=== PATIENT | female | born 1950 | race Caucasian/White ===

== ENCOUNTER 2019-01-03 10:13 | Inpatient (IN) | payer OTHER ==
[~2019-01-03] VITALS: Ht 157.5 cm; Wt 102.6 kg
--- NOTE | 2019-01-03 12:05 | NUR ---
Respiratory note: TOOK PT OFF BIPAP AND PLACED ON 2L N/C. SPO2 96%, RR 18, HR 100. EXPIRATORY WHEEZES HEARD T/O.
[2019-01-03] MEDS ORDERED: methylPREDNISolone SOD SUCC 125 MG/2 ML VL ONE (12:21)
[2019-01-03] MEDS ORDERED: IPRATROPIUM BROM 0.5 MG/2.5ML INH SOL HHN ONE (12:30)
[2019-01-03] MEDS ORDERED: ALBUTEROL SULF 2.5 MG/0.5ML(0.5%) NEB SOLN HHN ONE (12:30)
[2019-01-03] MEDS: cefTRIAXone 1GM/50ML D5W 50 ML IV ONE ×2 (12:33→13:37)
--- NOTE | 2019-01-03 12:35 | NUR ---
Respiratory note: MED NEB TX GIVEN.
[2019-01-03] MEDS ORDERED: methylPREDNISolone SOD SUCC 125 MG/2 ML VL IV ONE (12:45)
[2019-01-03] MEDS ORDERED: LORazepam 2MG/ML-1ML VIAL IV ONE (13:30)
[2019-01-03 13:58] VITALS: BP 141/78
[2019-01-03 13:58] LABS: Basophils # (auto) 0 uL; Basophils % (auto) 0.1 % (0.0-2.0); Eosinophils # (auto) 0 uL; Hemoglobin 14.5 g/dL (12.2-16.2); Lymphocytes # (auto) 0.9 uL; Lymphocytes % (auto) 6.1 % (10.0-50.0); Mean Corpuscular Hemoglobin 28.5 pg (28.0-32.0); Mean Corpuscular Volume 86.4 fL (80.0-100.0); Monocytes # (auto) 0.6 uL; Monocytes % (auto) 4.6 % (0.0-12.0); Neutrophils # (auto) 12.6 uL; Neutrophils % (auto) 89.2 % (37.0-80.0); Nucleated Red Blood Cells % 0.1 %; Platelet Count (auto) 308 10^3/uL (140-450); Red Cell Distribution Width 17.7 % (11.8-14.3); White Blood Cell 14.1 10^3/uL (4.4-10.8)
[2019-01-03] MEDS ORDERED: ONDANSETRON HCL 4 MG/2 ML VIAL IV PRN (14:00)
[2019-01-03] MEDS ORDERED: HYDROcodone-ACET 5/325MG TAB PO PRN (14:00)
[2019-01-03] MEDS ORDERED: ACETAMINOPHEN 500 MG TAB PO PRN (14:00)
[2019-01-03] MEDS ORDERED: MORPHINE SULF INJ 2 MG/ML SYRINGE 1ML IV PRN ×2 (14:00)
[2019-01-03] MEDS ORDERED: NITROGLYCERIN 0.4 MG SL TAB SL PRN (14:00)
[2019-01-03] MEDS ORDERED: ALBUTEROL SULF 2.5 MG/0.5ML(0.5%) NEB SOLN NEB ONE (14:15)
[2019-01-03 14:16] LABS: Albumin 3.8 g/dL (3.4-5.0); Anion Gap 6 (5-15); Blood Urea Nitrogen 20 mg/dL (7-18); Calcium 9.4 mg/dL (8.5-10.1); Carbon Dioxide 25 mmol/L (21-32); Chloride 103 mmol/L (98-107); Glucose 118 mg/dL (74-106); Potassium 4.6 mmol/L (3.5-5.1); Sodium 134 mmol/L (136-145)
[2019-01-03] MEDS: IPRATROPIUM BROM 0.5 MG/2.5ML INH SOL NEB SCH ×2 (14:18→19:02)
[2019-01-03] MEDS: ALBUTEROL SULF 2.5 MG/0.5ML(0.5%) NEB SOLN NEB SCH ×2 (14:18→19:02)
[2019-01-03 14:22] LABS: Alanine Aminotransferase 52 U/L (13-56); Alkaline Phosphatase 93 U/L (45-117); Aspartate Aminotransferase 75 U/L (15-37); BUN/Creatinine Ratio 24.1; Bilirubin, Total 0.3 mg/dL (0.2-1.0); GFR African American 88 mL/min; GFR Non-African American 73 mL/min; Total Protein 8.6 g/dL (6.4-8.2)
[2019-01-03] MEDS: AZITHROMYCIN 500MG/ 250ML 250 ML IV SCH (14:45)
[2019-01-03 15:45] VITALS: BP 138/83
[2019-01-03 15:55] VITALS: BP 141/80
[2019-01-03] MEDS: Glucerna Carbsteady SHAKE Vanilla 8oz PO SCH (18:00)
--- NOTE | 2019-01-03 18:00 | NUR ---
PT ADMITTED TO FLOOR FROM E.R VIA BED AND STAFF. PT RESTLESS AND BREATHING DEEPLY. PT ON BIPAP. VITALS: T 97.7, HR 98, 02 94, BP, 146/71 RR 30. PT ORIENTED TO CALL LIGHT AN VISITING HOURS. PT VOIDED APPROX 300 MLS CLEAR YELLOW URINE. WILL CONTINUE TO MONITOR.
[2019-01-03 18:38] VITALS: BP 146/71
[2019-01-03] MEDS: BUDESONIDE (INHALATION) 0.5 MG/2 ML NEB NEB SCH (19:02)
--- NOTE | 2019-01-03 19:02 | NUR ---
Respiratory note: RECEIVED PT ON RESPIRONICS BIPAP. UPON ENTERING PT ON BIPAP. SHEELA OVERTON AT BEDSIDE MADE AWARE BIPAP WAS NOT CONNECTED TO RED OUTLET AND O2 SOURCE AND ALSO TOLD THAT RESPIRATORY NEEDS TO AWARE TO MAKE SURE BIPAP IS CONNECTED PROPERLY AND PLACE CONTINUOUS POX AT BEDSIDE. RN COMMUNICATED ER TRANSPORTED AND PLACED PT BACK ON BIPAP. I CONNECTED BIPAP TO RED OUTLET AND O2 SOURCE PROPERLY. PLACED PT ON CONTINUOS POX. PLACED ON RIGHT INDEX FINGER. BS ARE FINE COURSE WHEEZES T/O. MED NEB TX GIVEN INLINE WITHOUT ADVERSE REACTION NOTED. RT NAME AND PAGER ASSIGNMENT WRITTEN ON PTS ROOM BOARD WILL CONTINUE TO MONITOR Q2H. Addendum: 01/03/19 at 2119 by Lisa Willett RT NO ABNORMAL SKIN INTEGRITY NOTED. PT ON SIZE M MASK NO REDNESS OR SKIN BREAKDOWN NOTED. LIQUICEL ON BRIDGE OF NOSE.
--- NOTE | 2019-01-03 19:35 | NUR ---
Opening Shift Note Assumed care of patient, awake and alert. Family at bedside. No S/S of distress/SOB or pain. Patient currently on BiPAP. Bed locked in lowest position, side rails upx2, call light within reach. Instructed on POC and to call for assist PRN, will continue to monitor for changes Q1hr and PRN.
--- NOTE | 2019-01-03 20:12 | NUR ---
Respiratory note: PAGED TO BEDSIDE, UPON ENTERING ROOM PT NOT ON BIPAP. RT NOT NOTIFIED PT CAME OFF BIPAP. PT ASKING TO BE PLACED BACK ON BIPAP. PT COMMUNICATED SHE CAME OFF TO EAT BUT NOW FEELS A LITTLE SHORT OF BREATH. PLACED BACK ON BIPAP ON PREVIOUS SETTINGS. NO CHANGES MADE. WILL CONTINUE TO MONITOR.
[2019-01-03] MEDS: TEMAZEPAM 15 MG CAP PO PRN (21:20)
[2019-01-03] MEDS: methylPREDNISolone SOD SUCC 40 MG/ML VL IV SCH (21:20)
[2019-01-03 22:00] VITALS: BP 132/86
--- NOTE | 2019-01-03 22:18 | NUR ---
Respiratory note: AT BEDSIDE FOR ROUTINE BIPAP CHECK, NO BIPAP CHANGES MADE. PT COMFORTABLY SLEEPING AT THIS TIME. WILL CONTINUE TO MONITOR.
--- NOTE | 2019-01-04 02:33 | NUR ---
Respiratory note: AT BEDSIDE FOR ROUTINE BIPAP CHECK. PT COMFORTABLY SLEEPING. NO CHANGES MADE.
--- NOTE | 2019-01-04 04:40 | NUR ---
Respiratory note: WALKING DOWN HALLWAY BIPAP ALARM IS AUDIBLE. PT SITTING AT EDGE OF BED TRIPODING, PT STATES SHE IS SOB. BS ARE COURSE WHEEZES T/O. WILL NOTIFY ELVI BAILEY TO OBTAIN ORDER FOR A CONTINUOUS TREATMENT.
[2019-01-04] MEDS ORDERED: ALBUTEROL SULF 2.5 MG/0.5ML(0.5%) NEB SOLN NEB ONE (04:45)
[2019-01-04] MEDS ORDERED: IPRATROPIUM BROM 0.5 MG/2.5ML INH SOL NEB ONE (04:45)
[2019-01-04] MEDS ORDERED: ALBUTEROL SULF 2.5 MG/0.5ML(0.5%) NEB SOLN ONE (04:47)
[2019-01-04] MEDS ORDERED: IPRATROPIUM BROM 0.5 MG/2.5ML INH SOL ONE (04:47)
[2019-01-04 05:00] VITALS: BP 130/77
[2019-01-04 05:21] LABS: Urine Bacteria FEW /hpf (None Seen); Urine Blood Negative /uL (Negative); Urine Hyaline Cast FEW /lpf (0 - 2); Urine Specific Gravity 1.016 (1.001-1.035); Urine WBC 2 /hpf (0 - 5)
[2019-01-04 05:34] LABS: Basophils # (auto) 0 uL; Basophils % (auto) 0.1 % (0.0-2.0); Eosinophils # (auto) 0 uL; Hematocrit 42.3 % (36.0-46.0); Hemoglobin 14.3 g/dL (12.2-16.2); Lymphocytes # (auto) 0.8 uL; Lymphocytes % (auto) 7.8 % (10.0-50.0); Mean Corpuscular Hemoglobin 29.3 pg (28.0-32.0); Mean Corpuscular Hgb Conc. 33.9 g/dL (32.0-36.0); Mean Corpuscular Volume 86.3 fL (80.0-100.0); Monocytes # (auto) 0.5 uL; Monocytes % (auto) 4.5 % (0.0-12.0); Neutrophils # (auto) 9.3 uL; Neutrophils % (auto) 87.6 % (37.0-80.0); Platelet Count (auto) 327 10^3/uL (140-450); Red Cell Distribution Width 17.7 % (11.8-14.3); White Blood Cell 10.7 10^3/uL (4.4-10.8)
[2019-01-04 05:57] LABS: Calcium 9.1 mg/dL (8.5-10.1); Potassium 4.9 mmol/L (3.5-5.1)
[2019-01-04] MEDS: ALBUTEROL SULF 2.5 MG/0.5ML(0.5%) NEB SOLN NEB SCH ×5 (06:24→22:49)
[2019-01-04] MEDS: IPRATROPIUM BROM 0.5 MG/2.5ML INH SOL NEB SCH ×5 (06:24→22:49)
--- NOTE | 2019-01-04 07:42 | NUR ---
PATIENT RESTING IN BED, NO DISTRESS NOTED. PT REPORTS 4/10 PAIN IN ABDOMEN. PAIN MEDICATION OFFERED, PT REPORTS SHE DOES NOT NEED IT AT THIS TIME. PT REPORTS SHE HAD A BM YESTERDAY. 2 SMALL INCISIONS ON RIGHT ABDOMEN HAVE MINIMAL SEROSANGUINEOUS DRAINAGE ON GAUZE COVERED WITH TEGADERM. LARGER INCISION ON LEFT HAS WHITE BANDAGE COVERING IT. ABDOMINAL BINDER IN PLACE. 20 MLS SANGUINOUS DRAINAGE EMPTIED FROM ADELINE DRAIN. PT ENCOURAGED TO USE CALL LIGHT PRN, WILL CONTINUE TO MONITOR. Addendum: 01/04/19 at 0754 by DEVORAH RAMAN RN WRONG PATIENT
--- NOTE | 2019-01-04 07:54 | NUR ---
PT RESTING IN BED, NO DISTRESS NOTED. PT ON BIPAP MACHINE. 02 SAT 94. PT REPORTS SHE HAS NO PAIN OR ANXIETY AT THIS TIME. CALL LIGHT IN REACH, ENCOURAGED TO CALL PRN. BED IN LOWEST LOCKED POSITION, SIDE RAILS UP X 2, WILL CONTINUE TO MONITOR.
--- NOTE | 2019-01-04 08:10 | NUR ---
Respiratory note: WALKED BY ROOM ALARM FOR BEDSIDE POX GOING OFF. PT WAS OFF BIPAP AND ON 4L N/C. PT STATED THE EMPLOYMENT EVALUATOR/CASE MANAGER TOOK HER OFF BIPAP TO EAT BREAKFAST. HR 87, RR 20, SPO2 96% ON 4L N/C.
--- NOTE | 2019-01-04 08:22 | NUR ---
RT CAME, PT NOW ON 4L NC AND 02 SAT 97. PT REPORTS NO ANXIETY OR DISTRESS AT THIS TIME WILL CONTINUE TO MONITOR.
[2019-01-04 09:00] VITALS: BP 127/73
[2019-01-04] MEDS: Glucerna Carbsteady SHAKE Vanilla 8oz PO SCH ×3 (09:25→14:16)
[2019-01-04] MEDS: methylPREDNISolone SOD SUCC 40 MG/ML VL IV SCH ×2 (09:26→21:43)
[2019-01-04] MEDS: PANTOPRAZOLE 40 MG/10 ML VIAL IV SCH (10:09)
[2019-01-04] MEDS: cefTRIAXone 1GM/50ML D5W 50 ML IV SCH (10:09)
[2019-01-04] MEDS: BUDESONIDE (INHALATION) 0.5 MG/2 ML NEB NEB SCH ×2 (10:20→18:25)
[2019-01-04] MEDS: AZITHROMYCIN 500MG/ 250ML 250 ML IV SCH (10:42)
--- NOTE | 2019-01-04 10:51 | NUR ---
SPOKE WITH DR. BEACH, INFORMED MD PT IS HIGH RISK FOR DVT, MD REPORTS HE WILL PUT HER ON LOVENOX. ALSO INFORMED PT WISHES TO HAVE NO CPR BUT IS COMFORTABLE WITH INTUBATION. MD AWARE. WILL CONTINUE TO MONITOR.
--- NOTE | 2019-01-04 11:15 | NUR ---
RADIOLOGY CALLED. NEW IV NEEDED. NEW IV PLACED LAC USING STERILE TECHNIQUE. PT TOLERATED PROCEDURE WELL. PT INSTRUCTED NOT TO EAT LUNCH BEFORE CT CHEST ANGIO WITH CONTRAST, PT AGREED, WILL CONTINUE TO MONITOR.
--- NOTE | 2019-01-04 12:52 | NUR ---
ARIA SOLANO REQUESTS TO CANCEL SOCIAL SERVICE ORDER FOR [place] OF GROUP/ INSURANCE. ARIA REPORTS DATABASE CONSULTANT DOESN'T DO THIS, THE PATIENT IS TO CHANGE THE GROUP/ INSURANCE. ORDER CANCELLED.
[2019-01-04] MEDS ORDERED: IOHEXOL 350 MG/ML 100ML IJ ONE (12:55)
[2019-01-04 13:00] VITALS: BP 149/85
--- NOTE | 2019-01-04 14:35 | NUR ---
YAMILETH COKER FROM [facility] CALLED, REQUESTED MD NOTES. MD NOTES FAXED. WILL CONTINUE TO MONITOR.
--- NOTE | 2019-01-04 15:00 | NUR ---
ASKED WASH HOUSE SUPERVISOR TO CALL IN PULMONARY CONSULT.
--- NOTE | 2019-01-04 15:50 | NUR ---
PT REPORTS SHE IS GETTING HUNGRY, PT REQUESTING TO KNOW WHEN RADIOLOGY WILL DO CT WITH CONTRAST. CALLED RADIOLOGY, RADIOLOGY REPORTS THEY WILL COME GET PATIENT NOW. PT NOTIFIED, WILL CONTINUE TO MONITOR.
[2019-01-04 17:00] VITALS: BP 144/76
--- NOTE | 2019-01-04 19:30 | NUR ---
Opening Shift Note Received report from Meron COKER. Assumed care of patient, awake and alert, sitting on the chair, daughter at bedside. No S/S of distress/SOB or pain. Instructed on POC and to call for assist PRN, will continue to monitor for changes Q1hr and PRN.
[2019-01-04 20:00] VITALS: BP 150/80
--- NOTE | 2019-01-04 21:45 | NUR ---
RT NOTE: PT SEEN BY RT @ THIS TIME TO CHECK IF PT NEEDS BIPAP. PT STATED BIPAP NOT NEEDED ALTHOUGH FEELING SLIGHT SOB. RN @ BEDSIDE GIVING MEDS AND AWARE. WILL CONT TO MONITOR PT. PT AWARE TO PAGE FOR RT IF BIPAP IS NEEDED. SP02 98% ON 3L NC, HR 84 ON CONT PULSE OX MONITOR.
[2019-01-04 22:00] VITALS: BP 150/80
--- NOTE | 2019-01-04 22:49 | NUR ---
RT NOTE: RT PAGED TO ROOM. PT @ BEDSIDE TRIPODING, REQUESTING BREATHING TX. UNSCHEDULED TX GIVEN @ THIS TIME. SPO2 96% ON 3L NC, RR 26. EXPIRATORY WHEEZES AUSCULTATED T/O. NO ADVERSE REACTIONS NOTED POST TX. PT JODI TX WELL. STATED SHE FELT BETTER. WILL CONT TO MONITOR.
[2019-01-04] MEDS: TEMAZEPAM 15 MG CAP PO PRN (23:01)
--- NOTE | 2019-01-04 23:58 | NUR ---
Patient is having continuous non productive cough Paged hospitalist to request cough medication. Awaiting call back of hospitalist.
--- NOTE | 2019-01-05 01:04 | NUR ---
Call from Hospitalist Hospitalist Dominick called back and ordered Robitussin DM 10ml Q6H PRN, carried out and followed through.
[2019-01-05] MEDS: guaiFENesin-DM 100/10mg/5ml SYR PO PRN ×3 (03:43→21:46)
[2019-01-05 05:00] VITALS: BP 120/69
[2019-01-05] MEDS: methylPREDNISolone SOD SUCC 40 MG/ML VL IV SCH ×3 (06:10→21:47)
[2019-01-05] MEDS: IPRATROPIUM BROM 0.5 MG/2.5ML INH SOL NEB SCH ×4 (06:52→18:04)
[2019-01-05] MEDS: ALBUTEROL SULF 2.5 MG/0.5ML(0.5%) NEB SOLN NEB SCH ×4 (06:52→18:04)
[2019-01-05] MEDS: BUDESONIDE (INHALATION) 0.5 MG/2 ML NEB NEB SCH ×2 (06:53→18:04)
--- NOTE | 2019-01-05 07:15 | NUR ---
Open Shift Note Received report on patient, awake and sitting up in chair. Patient has cough present, states it is difficult to take deep breathes for assessment. Patient aware of pending sputum sample. Wheezes present in all lobes. Discussed POC with patient. Bed in lowest locked position, side rails up x2, and call light within reach. Will continue to monitor.
--- NOTE | 2019-01-05 07:30 | NUR ---
Patient sitting on the chair, in mild distress with SOB, no pain. Endorsed care to Kanika COKER.
[2019-01-05 08:38] VITALS: BP 126/75
[2019-01-05] MEDS: PANTOPRAZOLE 40 MG/10 ML VIAL IV SCH (10:04)
[2019-01-05] MEDS: Glucerna Carbsteady SHAKE Vanilla 8oz PO SCH ×3 (10:04→18:33)
[2019-01-05] MEDS: cefTRIAXone 1GM/50ML D5W 50 ML IV SCH (10:05)
[2019-01-05 12:50] VITALS: BP 133/79
[2019-01-05] MEDS: AZITHROMYCIN 500MG/ 250ML 250 ML IV SCH (14:00)
[2019-01-05 16:53] LABS: Cholesterol 278 mg/dL (< 200); Triglycerides 123 mg/dL (< 150)
[2019-01-05 16:56] LABS: HDL Cholesterol 103 mg/dL (40-59); LDL Cholesterol 147 mg/dL (< 100)
[2019-01-05 17:00] VITALS: BP 132/78
--- NOTE | 2019-01-05 19:25 | NUR ---
End of Shift Endorsed care to NOC nurse. Patient shows no signs of distress at this time. Bed in lowest locked position, side rails up x2, and call light within reach.
--- NOTE | 2019-01-05 19:26 | NUR ---
RECEIVED PATIENT FROM DAY SHIFT RN. PATIENT SITTING AT THE SIDE OF THE BED. NO S/S OF DISTRESS NOTED. DENIED PAIN FOR NOW. POC INSTRUCTED AND ENCOURAGED PATIENT TO CALL FOR DIFFUSION OPERATOR IF NEEDED. BED IN LOWEST POSITION WITH SIDE RAILS UP X 2. CALL GRANT WITHIN REACH. CONTINUE TO MONITOR FOR CHANGES Q1H AND PRN.
[2019-01-05] MEDS: TEMAZEPAM 15 MG CAP PO PRN (21:46)
[2019-01-05] MEDS: DOCUSATE SOD 100 MG CAP PO SCH (21:47)
--- NOTE | 2019-01-05 21:52 | NUR ---
PATIENT COUGHING AND BREATHING WITH WHEEZING. PRN COUGH MEDIATION GIVEN ORDERED. CONTINUE TO MONITOR.
[2019-01-05 22:17] VITALS: BP 139/71
--- NOTE | 2019-01-06 01:01 | NUR ---
PATIENT SLEEPING. NO S/S OF DISTRESS NOTED. BED IN LOWEST POSITION. ALARM ON. CALL GRANT WITHIN REACH. CONTINUE CARE.
--- NOTE | 2019-01-06 04:00 | NUR ---
PATIENT WALKED TO BATHROOM AND BACK TO BED. NO S/S OF DISTRESS NOTED. CONTINUE CARE.
[2019-01-06 04:26] VITALS: BP 130/69
[2019-01-06] MEDS: guaiFENesin-DM 100/10mg/5ml SYR PO PRN ×3 (04:29→21:29)
[2019-01-06] MEDS: methylPREDNISolone SOD SUCC 40 MG/ML VL IV SCH ×3 (05:52→21:30)
[2019-01-06] MEDS: ALBUTEROL SULF 2.5 MG/0.5ML(0.5%) NEB SOLN NEB SCH ×5 (06:11→22:04)
[2019-01-06] MEDS: IPRATROPIUM BROM 0.5 MG/2.5ML INH SOL NEB SCH ×5 (06:11→22:04)
--- NOTE | 2019-01-06 07:20 | NUR ---
Open Shift Note Received report on patient, awake and sitting on side of bed. Patient states they were able to get much more sleep last night, but still has SOB upon exertion. Patient shows no signs of distress at this time. Bed in lowest locked position, side rails up x2, and call light within reach. Will continue to monitor.
[2019-01-06 09:00] VITALS: BP 143/71
[2019-01-06] MEDS: Glucerna Carbsteady SHAKE Vanilla 8oz PO SCH ×3 (09:23→19:13)
[2019-01-06] MEDS: cefTRIAXone 1GM/50ML D5W 50 ML IV SCH (09:23)
[2019-01-06] MEDS ORDERED: PSYLLIUM PO PRN (10:00)
[2019-01-06] MEDS ORDERED: PSYLLIUM GT SCH (10:00)
[2019-01-06] MEDS: BUDESONIDE (INHALATION) 0.5 MG/2 ML NEB NEB SCH ×2 (10:13→18:37)
[2019-01-06] MEDS: PANTOPRAZOLE 40 MG/10 ML VIAL IV SCH (10:54)
[2019-01-06] MEDS: DOCUSATE SOD 100 MG CAP PO SCH ×2 (10:54→21:29)
[2019-01-06] MEDS: AZITHROMYCIN 500MG/ 250ML 250 ML IV SCH (10:54)
[2019-01-06 13:00] VITALS: BP 135/60
--- NOTE | 2019-01-06 15:30 | NUR ---
Dr Flannery at Bedside Dr Flannery at patient bedside.
[2019-01-06] MEDS ORDERED: ALBUTEROL SULF 2.5 MG/0.5ML(0.5%) NEB SOLN NEB PRN (16:00)
[2019-01-06 16:14] VITALS: BP 135/60
[2019-01-06 17:00] VITALS: BP 156/109
[2019-01-06] MEDS ORDERED: ACETYLCYSTEINE 10 %(100MG/ML) SOL 4ML NEB SCH (18:00)
[2019-01-06] MEDS: ACETYLCYSTEINE 10 %(100MG/ML) SOL 4ML NEB SCH (18:38)
--- NOTE | 2019-01-06 19:25 | NUR ---
RECEIVED PATIENT FROM DAY SHIFT RN. PATIENT SITTING AT THE SIDE OF THE BED. NO S/S OF DISTRESS NOTED. DENIED PAIN FOR NOW. POC INSTRUCTED AND ENCOURAGED PATIENT TO CALL FOR MOSAIC TILER IF NEEDED. BED IN LOWEST POSITION WITH SIDE RAILS UP X 2. CALL GRANT WITHIN REACH. CONTINUE TO MONITOR FOR CHANGES Q1H AND PRN.
--- NOTE | 2019-01-06 19:46 | NUR ---
PATIENT WALKED ON HALLWAY WITH PORTABLE OXYGEN, GAIT STEADY. PATIENT WALKED TO THE END OF THE HALLWAY AND BACK TO ROOM, SOB NOTED, O2 SAT DOWN TO 87%. PATIENT BACK TO ROOM AND SAT ON THE SIDE OF THE BED FOR A WHILE, GETTING BETTER, PATIENT WILL TRY LATER AGAIN FOR WALK. CONTINUE TO MONITOR.
[2019-01-06 22:00] VITALS: BP 144/76
[2019-01-06] MEDS: TEMAZEPAM 15 MG CAP PO PRN (22:28)
--- NOTE | 2019-01-06 22:28 | NUR ---
PATIENT WALKED TO BATHROOM WITH STEADY GAIT. NO S/S OF DISTRESS AND SOB NOTED. CONTINUE TO MONITOR.
--- NOTE | 2019-01-07 00:41 | NUR ---
PATIENT SLEEPING. NO S/S OF DISTRESS NOTED. BED IN LOWEST POSITION. ALARM ON. CALL GRANT WITHIN REACH. CONTINUE CARE.
[2019-01-07] MEDS: IPRATROPIUM BROM 0.5 MG/2.5ML INH SOL NEB SCH ×6 (02:00→22:01)
[2019-01-07] MEDS: ALBUTEROL SULF 2.5 MG/0.5ML(0.5%) NEB SOLN NEB SCH ×6 (02:00→22:01)
--- NOTE | 2019-01-07 02:11 | NUR ---
RT AT BEDSIDE FOR SCHEDULED BREATHING TREATMENT. CONTINUE CARE.
[2019-01-07 05:00] VITALS: BP 135/70
[2019-01-07] MEDS: methylPREDNISolone SOD SUCC 40 MG/ML VL IV SCH ×3 (05:42→21:21)
[2019-01-07 05:59] LABS: Hematocrit 38.9 % (36.0-46.0); Hemoglobin 12.9 g/dL (12.2-16.2); Mean Corpuscular Hemoglobin 28.7 pg (28.0-32.0); Mean Corpuscular Hgb Conc. 33.2 g/dL (32.0-36.0); Mean Corpuscular Volume 86.3 fL (80.0-100.0); Platelet Count (auto) 277 10^3/uL (140-450); Red Blood Cells 4.51 10^6/uL (4.0-5.20); Red Cell Distribution Width 17.4 % (11.8-14.3); White Blood Cell 10.5 10^3/uL (4.4-10.8)
[2019-01-07 06:06] LABS: Potassium 4.3 mmol/L (3.5-5.1)
[2019-01-07 06:09] LABS: Band Neutrophils % (manual) 0; Basophils % (manual) 0 (0.0-2.0); Blast Cells 0; Eosinophils % (manual) 0 (0-7); Metamyelocytes % 0; Myelocytes % 0; Promyelocytes % 0; Reactive Lymphocytes 0
[2019-01-07 06:11] LABS: BUN/Creatinine Ratio 29.2; Calcium 8.6 mg/dL (8.5-10.1); Magnesium 2.7 mg/dL (1.6-2.6)
[2019-01-07] MEDS: ACETYLCYSTEINE 10 %(100MG/ML) SOL 4ML NEB SCH ×3 (06:34→22:02)
[2019-01-07 06:36] LABS: Lymphocytes % (manual) 9 (10.0-50.0); Monocytes % (manual) 7 (0-12)
--- NOTE | 2019-01-07 07:20 | NUR ---
Open Shift Note Received report on patient, awake and sitting on side of bed. Patient states they had difficulty sleeping last night. Patient still wheezing. Shows no other signs of distress at this time. Bed in lowest locked position, side rails up x2, and call light within reach. Will continue to monitor.
[2019-01-07] MEDS: Glucerna Carbsteady SHAKE Vanilla 8oz PO SCH ×3 (08:00→18:00)
[2019-01-07 09:00] VITALS: BP 146/83
[2019-01-07] MEDS: PANTOPRAZOLE 40 MG/10 ML VIAL IV SCH (10:00)
[2019-01-07] MEDS: BUDESONIDE (INHALATION) 0.5 MG/2 ML NEB NEB SCH ×2 (10:34→18:13)
[2019-01-07] MEDS: guaiFENesin-DM 100/10mg/5ml SYR PO PRN ×2 (10:57→21:23)
[2019-01-07] MEDS: cefTRIAXone 1GM/50ML D5W 50 ML IV SCH (10:58)
[2019-01-07] MEDS: DOCUSATE SOD 100 MG CAP PO SCH ×2 (10:58→21:23)
[2019-01-07] MEDS: AZITHROMYCIN 500MG/ 250ML 250 ML IV SCH (12:10)
--- NOTE | 2019-01-07 12:14 | NUR ---
Nutrition Assessment Notes please see attached link for complete assessment Est. Needs ABW [id number] kcal (17-20 kcal/kgBW), 75-82 gms pro (1.0-1.1 gms/kgBW). Will continue to monitor pertinent labs and reassess nutrient needs prn Addendum: 01/07/19 at [address] Amended: Links added.
[2019-01-07 12:30] VITALS: BP 117/68
--- NOTE | 2019-01-07 15:30 | NUR ---
PT Ambulated Patient ambulated with physical therapy today. Tolerated well.
[2019-01-07 16:41] VITALS: BP 125/64
--- NOTE | 2019-01-07 20:07 | NUR ---
Open Shift Note Bed side report with day RN Kanika pt awake and sitting on side of bed. Patient still wheezing. Shows no other signs of distress at this time. Bed in lowest locked position, side rails up x2, and call light within reach. Will continue to monitor.
[2019-01-07 22:00] VITALS: BP 120/64
[2019-01-07] MEDS: TEMAZEPAM 15 MG CAP PO PRN (22:21)
[2019-01-08] MEDS: ALBUTEROL SULF 2.5 MG/0.5ML(0.5%) NEB SOLN NEB SCH ×5 (03:01→18:41)
[2019-01-08] MEDS: IPRATROPIUM BROM 0.5 MG/2.5ML INH SOL NEB SCH ×5 (03:01→18:41)
[2019-01-08 05:00] VITALS: BP 113/67
[2019-01-08] MEDS: methylPREDNISolone SOD SUCC 40 MG/ML VL IV SCH ×3 (05:46→21:48)
[2019-01-08] MEDS: BUDESONIDE (INHALATION) 0.5 MG/2 ML NEB NEB SCH ×2 (06:17→18:41)
[2019-01-08] MEDS: ACETYLCYSTEINE 10 %(100MG/ML) SOL 4ML NEB SCH ×3 (06:17→18:46)
--- NOTE | 2019-01-08 07:30 | NUR ---
OPENING SHIFT PATIENT IS AWAKE, ALERT, AND ORIENTED X4 SITTING UP IN CHAIR. RESPIRATIONS EVEN AND UNLABORED. DISCUSSED POC WITH PATIENT. PATIENT VERBALIZED UNDERSTANDING. NO S/S OF DISTRESS, SOB, OR PAIN. WILL CONTINUE TO MONITOR Q1 HOUR AND PRN.
[2019-01-08 09:00] VITALS: BP 128/77
[2019-01-08] MEDS: AZITHROMYCIN 500MG/ 250ML 250 ML IV SCH (10:00)
[2019-01-08] MEDS: Glucerna Carbsteady SHAKE Vanilla 8oz PO SCH ×3 (10:41→18:26)
[2019-01-08] MEDS: PANTOPRAZOLE 40 MG/10 ML VIAL IV SCH (10:41)
[2019-01-08] MEDS: cefTRIAXone 1GM/50ML D5W 50 ML IV SCH (10:42)
[2019-01-08] MEDS: DOCUSATE SOD 100 MG CAP PO SCH ×2 (10:42→21:46)
--- NOTE | 2019-01-08 10:42 | NUR ---
IV insertion IV access obtained, via clean sterile technique by inserting 22 gauge catheter at LEFT FOREARM after 1 attempt. IV secured properly. No trauma to site. Patient tolerated well.
[2019-01-08 12:41] VITALS: BP 135/78
[2019-01-08 17:00] VITALS: BP 122/67
--- NOTE | 2019-01-08 17:00 | NUR ---
DR. JEET Sena AT BEDSIDE DISCUSSING POC WITH PATIENT. PATIENT VERBALIZED UNDERSTANDING. EXPECTED D.C. TOMORROW 01/09/18
--- NOTE | 2019-01-08 17:10 | NUR ---
SPO2% WITHOUT 02 DURING AMBULATION SPO2 WAS MONITORED WITHOUT OXYGEN VIA PORTABLE PULSE OX. R/T RAUDEL AND SEGUNDO R.NYareli AT PATIENT'S SIDE WHILE PATIENT AMBULATED 90 FEET. SPO2 DROPPED TO 78% WITH S/S OF SOB AND LABORED BREATHING. ASSISTED PATIENT BACK TO BEDSIDE AND HOOKED PATIENT UP TO 3L O2. PATIENT SPO2 ELEVATED TO 95%. RESPIRATIONS EVEN AND UNLABORED. REPORTED FINDINGS TO DR. MARCANO PER Jaida REQUEST
--- NOTE | 2019-01-08 17:30 | NUR ---
SOCIAL SERVICE CONSULT PUT IN PER M.D. TO FOR PATIENT TO GO HOME WITH PORTABLE OXYGEN D/C EXPECTED FOR TOMORROW 01/09/19
--- NOTE | 2019-01-08 18:41 | NUR ---
Respiratory note: AT BEDSIDE FOR MED JEFFRY TX. PT TOLERATING TX WELL VIA MASK.
--- NOTE | 2019-01-08 18:45 | NUR ---
END OF SHIFT PATIENT RESTING IN BED. NO S/S OF DISTRESS, SOB, OR PAIN. RESPIRATIONS EVEN AND UNLABORED. BED IS IN LOWEST POSITION, SIDE RAILS UP X2, AND CALL LIGHT WITHIN REACH. WILL ENDORSE CARE TO NOC R.N.
--- NOTE | 2019-01-08 19:05 | NUR ---
OPENING SHIFT PATIENT IS AWAKE, ALERT, AND ORIENTED X4 SITTING UP IN CHAIR. RESPIRATIONS EVEN AND UNLABORED. DISCUSSED POC WITH PATIENT. PATIENT VERBALIZED UNDERSTANDING. NO S/S OF DISTRESS, SOB, OR PAIN. WILL CONTINUE TO MONITOR Q1 HOUR AND PRN. BED LOCKED AND IN LOWEST POSITION, CALL LIGHT WITHIN REACH.
--- NOTE | 2019-01-08 19:15 | NUR ---
IV REMOVAL IV DC'd on R Wrist 22g with clean sterile technique, catheter fully intact. Pressure dressing applied to site. Patient tolerated well. NOTE:
[2019-01-08] MEDS: guaiFENesin-DM 100/10mg/5ml SYR PO PRN (19:38)
[2019-01-08] MEDS: TEMAZEPAM 15 MG CAP PO PRN (21:46)
[2019-01-08 22:00] VITALS: BP 126/62
[2019-01-09 04:56] VITALS: BP 133/76
[2019-01-09] MEDS: guaiFENesin-DM 100/10mg/5ml SYR PO PRN (05:30)
[2019-01-09] MEDS: methylPREDNISolone SOD SUCC 40 MG/ML VL IV SCH ×2 (05:33→14:58)
[2019-01-09] MEDS: ACETYLCYSTEINE 10 %(100MG/ML) SOL 4ML NEB SCH ×2 (06:10→14:23)
[2019-01-09] MEDS: ALBUTEROL SULF 2.5 MG/0.5ML(0.5%) NEB SOLN NEB SCH ×3 (06:10→14:23)
[2019-01-09] MEDS: IPRATROPIUM BROM 0.5 MG/2.5ML INH SOL NEB SCH ×3 (06:10→14:23)
--- NOTE | 2019-01-09 07:32 | NUR ---
CLOSING NOTE REPORT ENDORSED TO DAY RN pt sitting at side of bed, no s/sx's of distress or so b noted
--- NOTE | 2019-01-09 07:40 | NUR ---
OPENING SHIFT PATIENT AWAKE, ALERT, AND ORIENTED X4. RESPIRATIONS EVEN AND UNLABORED. NO S/S OF DISTRESS, SOB, OR PAIN. DISCUSSED POC WITH PATIENT. PATIENT VERBALIZED UNDERSTANDING. BED IS IN LOWEST POSITION, SIDE RAILS UP X2, AND CALL LIGHT WITHIN REACH. WILL CONTINUE TO MONITOR Q1 HOUR AND PRN
[2019-01-09 08:35] VITALS: BP 151/83
[2019-01-09] MEDS: BUDESONIDE (INHALATION) 0.5 MG/2 ML NEB NEB SCH (09:57)
[2019-01-09] MEDS ORDERED: AZITHROMYCIN 250 MG TAB PO SCH (10:00)
[2019-01-09] MEDS: DOCUSATE SOD 100 MG CAP PO SCH (10:47)
[2019-01-09] MEDS: PANTOPRAZOLE 40 MG/10 ML VIAL IV SCH (10:47)
[2019-01-09] MEDS: cefTRIAXone 1GM/50ML D5W 50 ML IV SCH (10:47)
[2019-01-09] MEDS: Glucerna Carbsteady SHAKE Vanilla 8oz PO SCH ×3 (10:48→18:00)
--- NOTE | 2019-01-09 12:30 | NUR ---
I faxed home oxygen order to [facility] Meter Setter Lois Hannah, I also spoke with her, she said she would forward the order to [facility] who would give me a call with the ETA for the oxygen.
[2019-01-09 13:00] VITALS: BP 122/85
--- NOTE | 2019-01-09 14:25 | NUR ---
CALLED [facility] LEFT A MESSAGE FOR [employer] TO GET AN ETA OF HOME OXYGEN ARRIVAL WILL AWAIT CALL BACK
[2019-01-09 14:52] VITALS: BP 151/83
[2019-01-09 17:00] VITALS: BP 144/69
--- NOTE | 2019-01-09 17:02 | NUR ---
Per Lois Hannah at [facility], patient's home oxygen will come from [facility]. I called [facility] [phone] and spoke with Claudia, she said the portable oxygen tank will be delivered to patient's bedside by 6pm-I relayed this information to patient's primary nurse.
--- NOTE | 2019-01-09 18:07 | NUR ---
DISCHARGE Discharge instructions given as ordered. Encourage to follow up with PCP as instructed. All questions and concerns addressed. Patient verbalized understanding. IV removed with catheter intact, pressure dressing applied. Telemetry unit returned to [facility]. Home oxygen delivered to bedside. Patient taken to vehicle via wheelchair with all personal belongings, accompanied by staff and family member. No distress noted at time of departure.
== END 2019-01-09 08:11 | disposition home health service (06) | DRG 193 ==
LOC: ER 10:13 → TELE 14:01 → TELE-CENTR 18:08
PROVIDERS: ADMIT Nurse Practitioner Acute Care; ATTEND Internal Medicine
DX: J18.9 Pneumonia, unspecified organism (principal); J96.01 Acute respiratory failure with hypoxia; J44.1 Chronic obstructive pulmonary disease with (acute) exacerbation; J44.0 Chronic obstructive pulmonary disease with (acute) lower respiratory infection; Z68.41 Body mass index [BMI] 40.0-44.9, adult; I10 Essential (primary) hypertension; E03.9 Hypothyroidism, unspecified; E11.9 Type 2 diabetes mellitus without complications; E78.00 Pure hypercholesterolemia, unspecified; E66.9 Obesity, unspecified; F41.9 Anxiety disorder, unspecified; J20.9 Acute bronchitis, unspecified; E78.5 Hyperlipidemia, unspecified; Z87.891 Personal history of nicotine dependence; I89.0 Lymphedema, not elsewhere classified; Z90.49 Acquired absence of other specified parts of digestive tract; Z79.899 Other long term (current) drug therapy
CPT/HCPCS: 36415; 36600; 71045; 71275; 80048; 80053; 80061; 81001; 82805; 83036; 83605; 83735; 83880; 84439; 84443; 84484; 85007; 85025; 85027; 85379; 87040; 87804; 93005; 93970; 94640; 94660; 94761; 96365; 96367; 96375; 97163; C9113; G0378; J0696

== ENCOUNTER 2019-03-31 15:23 | Emergency (ER) | payer OTHER ==
[~2019-03-31] VITALS: Ht 157.5 cm; Wt 99.8 kg
[2019-03-31 16:37] LABS: Basophils # (auto) 0.1 uL; Basophils % (auto) 1.1 % (0.0-2.0); Eosinophils # (auto) 0.2 uL; Eosinophils % (auto) 1.6 % (0.0-7.0); Hematocrit 39.5 % (36.0-46.0); Hemoglobin 13.2 g/dL (12.2-16.2); Lymphocytes # (auto) 1.8 uL; Lymphocytes % (auto) 19.2 % (10.0-50.0); Mean Corpuscular Hemoglobin 30.2 pg (28.0-32.0); Mean Corpuscular Hgb Conc. 33.5 g/dL (32.0-36.0); Mean Corpuscular Volume 90.2 fL (80.0-100.0); Monocytes # (auto) 0.6 uL; Monocytes % (auto) 6.6 % (0.0-12.0); Neutrophils # (auto) 6.8 uL; Neutrophils % (auto) 71.5 % (37.0-80.0); Platelet Count (auto) 265 10^3/uL (140-450); Red Blood Cells 4.38 10^6/uL (4.0-5.20); Red Cell Distribution Width 16.5 % (11.8-14.3); White Blood Cell 9.5 10^3/uL (4.4-10.8)
[2019-03-31 16:51] LABS: Albumin 3.5 g/dL (3.4-5.0); Anion Gap 8 (5-15); Blood Urea Nitrogen 23 mg/dL (7-18); Calcium 9.1 mg/dL (8.5-10.1); Carbon Dioxide 25 mmol/L (21-32); Chloride 109 mmol/L (98-107); Glucose 90 mg/dL (74-106); Magnesium 2.2 mg/dL (1.6-2.6); Potassium 3.6 mmol/L (3.5-5.1); Sodium 142 mmol/L (136-145)
[2019-03-31 16:57] LABS: Alanine Aminotransferase 32 U/L (13-56); Alkaline Phosphatase 76 U/L (45-117); Aspartate Aminotransferase 27 U/L (15-37); BUN/Creatinine Ratio 24.5; Bilirubin, Total 0.3 mg/dL (0.2-1.0); GFR African American 77 mL/min; GFR Non-African American 63 mL/min; Total Protein 7.1 g/dL (6.4-8.2)
[2019-03-31] MEDS ORDERED: IPRATROPIUM BROM 0.5 MG/2.5ML INH SOL HHN ONE (17:15)
[2019-03-31] MEDS ORDERED: ALBUTEROL SULF 2.5 MG/0.5ML(0.5%) NEB SOLN HHN ONE (17:15)
[2019-03-31] MEDS ORDERED: methylPREDNISolone SOD SUCC 125 MG/2 ML VL IV ONE (17:15)
[2019-03-31 17:24] LABS: Urine WBC None Seen /hpf (0 - 5)
[2019-03-31 18:22] LABS: Urine Bacteria NONE SEEN /hpf (None Seen); Urine Blood Negative /uL (Negative); Urine Specific Gravity 1.007 (1.001-1.035)
[2019-03-31 21:27] VITALS: BP 126/77
== END 2019-03-31 22:39 | disposition home or self-care (01) ==
LOC: ER 15:23 → EDBD 15:23 → ER 22:39
DX: J44.9 Chronic obstructive pulmonary disease, unspecified (principal); I48.92 Unspecified atrial flutter; E11.9 Type 2 diabetes mellitus without complications; F41.9 Anxiety disorder, unspecified; I10 Essential (primary) hypertension; E66.01 Morbid (severe) obesity due to excess calories; Z86.39 Personal history of other endocrine, nutritional and metabolic disease; Z87.891 Personal history of nicotine dependence; Z68.41 Body mass index [BMI] 40.0-44.9, adult
CPT/HCPCS: 36415; 71045; 80053; 81001; 83735; 83880; 84484; 85025; 93005; 94640; 94761; 99284; J2930; J7611; J7644